=== PATIENT | female | born 1960 | race African-American/Black ===

== ENCOUNTER 2017-06-16 14:56 | Outpatient (CLI) | payer BC ==
--- NOTE | 2017-06-16 15:54 | RAD ---
LEFT HIP TWO VIEWS: History: Left hip pain. FINDINGS: There is mild osteophytosis and joint space narrowing. Femoral head contour is maintained. No acute f racture, dislocation, or aggressive osseous erosions. IMPRESSION: Mild osteoarthritic changes left hip. POS: [facility]
--- NOTE | 2017-06-16 16:00 | RAD ---
RIGHT HIP TWO VIEWS: History: Right hip pain. FINDINGS: There is mild osteophytosis and subchondral sclerosis. Slight irregularity of the articular surface o f the femoral head is apparent. Joint space is preserved. No acute fracture or dislocation. IMPRESSION: Mild osteoarthritic changes right hip. POS: [facility]
== END 2017-06-16 14:57 | disposition home or self-care (01) ==
LOC: TBSIIMAG 14:56
PROVIDERS: ATTEND Neurological Surgery
DX: M54.5 Low back pain (principal); M16.0 Bilateral primary osteoarthritis of hip